=== PATIENT | female | born 1980 | race Caucasian/White ===

== ENCOUNTER 2017-10-11 00:55 | Emergency (ER) | payer OTHER ==
[~2017-10-11] VITALS: Ht 152.4 cm; Wt 110.0 kg
[2017-10-11 01:04] VITALS: Ht 152.4 cm; Wt 110.0 kg
[2017-10-11 06:26] VITALS: BP 108/65
== END 2017-10-11 06:26 | disposition home or self-care (01) ==
LOC: ED 00:55
DX: R60.0 Localized edema (principal); I10 Essential (primary) hypertension

== ENCOUNTER 2018-01-19 11:16 | Emergency (ER) | payer OTHER ==
[~2018-01-19] VITALS: Ht 152.4 cm; Wt 103.9 kg
[2018-01-19 11:22] VITALS: Ht 152.4 cm; Wt 103.9 kg
[2018-01-19 12:12] LABS: CALCIUM 8.2 mg/dL (8.5-10.1); CARBON DIOXIDE 30.1 mmol/L (21-32); CHLORIDE SERUM 104 mmol/L (98-107); CREATININE SERUM 0.5 mg/dL (0.6-1.0); GFR1 > 60 mL/min; GLUCOSE SERUM 98 mg/dL (74-106); POTASSIUM SERUM 4.4 mmol/L (3.5-5.1); SODIUM SERUM 139 mmol/L (136-145)
[2018-01-19 12:13] LABS: BASOPHIL % 0.6 % (0-2); PLATELET COUNT 243 x10^3mcL (130-400); RED CELL DISTRIBUTION WIDTH 12.3 % (11.5-14.5)
[2018-01-19 12:16] LABS: ALKALINE PHOSPHATASE 79 U/L (46-116); ALT/SGPT 25 U/L (14-59); AST/SGOT 20 U/L (15-37); BILIRUBIN TOTAL 0.3 mg/dL (0.20-1.00); TOTAL PROTEIN, SERUM 7.1 g/dL (6.4-8.2); URIC ACID 3.4 mg/dL (2.6-6.0)
[2018-01-19 12:18] LABS: ALBUMIN 3.3 g/dL (3.4-5.0)
[2018-01-19 13:01] VITALS: BP 127/77
== END 2018-01-19 13:45 | disposition home or self-care (01) ==
LOC: ED 11:16
PROVIDERS: Emergency Medicine
DX: M54.5 Low back pain (principal); I10 Essential (primary) hypertension; Z86.73 Personal history of transient ischemic attack (TIA), and cerebral infarction without residual deficits; E03.9 Hypothyroidism, unspecified
CPT/HCPCS: J1885

== ENCOUNTER 2018-01-31 22:08 | Emergency (ER) | payer OTHER ==
[~2018-01-31] VITALS: Ht 152.4 cm; Wt 107.5 kg
[2018-01-31 22:19] VITALS: Ht 152.4 cm; Wt 107.5 kg
[2018-02-01 00:24] VITALS: BP 135/91
== END 2018-02-01 00:24 | disposition home or self-care (01) ==
LOC: ED 22:08
DX: S51.811A Laceration without foreign body of right forearm, initial encounter (principal); I10 Essential (primary) hypertension; E03.9 Hypothyroidism, unspecified; Z86.73 Personal history of transient ischemic attack (TIA), and cerebral infarction without residual deficits; X58.XXXA Exposure to other specified factors, initial encounter; Y93.89 Activity, other specified; Y92.89 Other specified places as the place of occurrence of the external cause; Y99.8 Other external cause status
CPT/HCPCS: 90715; J2001

== ENCOUNTER 2018-06-08 11:42 | Emergency (ER) | payer OTHER ==
[~2018-06-08] VITALS: Ht 152.4 cm; Wt 116.6 kg
[2018-06-08 12:00] VITALS: Ht 152.4 cm; Wt 116.6 kg
[2018-06-08 13:05] VITALS: BP 149/99
== END 2018-06-08 13:00 | disposition home or self-care (01) ==
LOC: ED 11:42
DX: S60.421A Blister (nonthermal) of left index finger, initial encounter (principal); S60.420A Blister (nonthermal) of right index finger, initial encounter; R20.2 Paresthesia of skin; I10 Essential (primary) hypertension; E03.9 Hypothyroidism, unspecified; Z86.73 Personal history of transient ischemic attack (TIA), and cerebral infarction without residual deficits; Z98.890 Other specified postprocedural states; X58.XXXA Exposure to other specified factors, initial encounter; Y93.89 Activity, other specified; Y92.89 Other specified places as the place of occurrence of the external cause; Y99.8 Other external cause status

== ENCOUNTER 2020-01-18 14:58 | Emergency (ER) | payer OTHER, SELFPAY ==
[~2020-01-18] VITALS: Ht 162.6 cm; Wt 113.4 kg
[2020-01-18 15:07] VITALS: Ht 162.6 cm; Wt 113.4 kg
[2020-01-18 16:00] VITALS: BP 135/84
== END 2020-01-18 16:00 | disposition home or self-care (01) ==
LOC: ED 14:58
DX: M79.10 Myalgia, unspecified site (principal); R53.1 Weakness; I10 Essential (primary) hypertension; E03.9 Hypothyroidism, unspecified; Z20.828 Contact with and (suspected) exposure to other viral communicable diseases; Z98.890 Other specified postprocedural states
CPT/HCPCS: U0003-CS